=== PATIENT | female | born 1950 | race Caucasian/White ===

== ENCOUNTER 2019-08-02 10:00 | Observation (INO) ==
[2019-10-25] MEDS ORDERED: Dexamethasone IV 4 MG/ML VIAL 1 ml VIAL IV SLOW PU ONE (06:00)
[2019-10-25] MEDS ORDERED: Buffered Lidocaine 1% SYRIN 1 ml INTRADERM ONE ×2 (06:00→06:19)
[2019-10-25] MEDS ORDERED: Famotidine IV 10 MG/ML 2 ml VIAL (20 mg) IV ONE (06:00)
[2019-10-25] MEDS ORDERED: Acetaminophen IV 1 GM/100ML 1,000 MG/100 ML VIAL IVPB ONE (06:00)
[2019-10-25] MEDS ORDERED: Lactated Ringers 1000 ml BAG 1,000 ML IV SCH (06:00)
[2019-10-25] MEDS ORDERED: ceFAZolin 2 GM PREMIX 2 GM/50 ML BAG ONE (06:18)
[2019-10-25] MEDS ORDERED: Dexamethasone IV 4 MG/ML VIAL 1 ml VIAL ONE (06:18)
[2019-10-25] MEDS ORDERED: Acetaminophen IV 1 GM/100ML 100 ML ONE (06:19)
[2019-10-25] MEDS ORDERED: Famotidine IV 10 MG/ML 2 ml VIAL (20 mg) ONE (06:19)
[2019-10-25] MEDS ORDERED: Midazolam 2 mg/2 ml VIAL 1 mg/ml 2 ml VIAL (2 mg) ONE (06:59)
[2019-10-25] MEDS ORDERED: EPHEDrine (Pressors) 50 MG/ML VIAL ONE (07:00)
[2019-10-25] MEDS ORDERED: Phenylephrine 40 mcg/mL 10mL (400mcg) SYRINGE ONE (07:00)
[2019-10-25] MEDS ORDERED: Propofol 10 MG/ML 20 ML BTL ONE ×2 (07:00→10:06)
[2019-10-25] MEDS ORDERED: fentaNYL 100 mcg/2 ml 50 MCG/ML VIAL ONE (07:00)
[2019-10-25] MEDS ORDERED: Lidocaine 2% PF 5 ML VIAL ONE (07:00)
[2019-10-25] MEDS ORDERED: Sodium Chloride 0.9% 10 ML ONE (07:00)
[2019-10-25] MEDS ORDERED: Bupivacaine 0.5% SDV PF 30ML VIAL ONE ×2 (07:01→07:47)
[2019-10-25] MEDS ORDERED: Lidocaine 2% JELLY 6 ML TOPICAL ONE (07:12)
[2019-10-25] MEDS ORDERED: Ondansetron ODT 4 mg TAB 4 MG TAB PO PRN (10:28)
[2019-10-25] MEDS ORDERED: Lactulose 30 ml UDC PO PRN (10:28)
[2019-10-25] MEDS ORDERED: diPHENhydraMINE 25 mg TAB PO PRN (10:28)
[2019-10-25] MEDS ORDERED: Magnesium Hydroxide LIQ 30 ML UDC PO PRN (10:28)
[2019-10-25] MEDS ORDERED: Morphine 2 MG/ML SYRINGE IV PRN (10:28)
[2019-10-25] MEDS ORDERED: Ondansetron 4 mg VIAL 2 MG/ML 2 ml VIAL IV PRN ×2 (10:28→13:18)
[2019-10-25] MEDS ORDERED: diPHENhydraMINE IV 50 MG/ML 1 ml VIAL (BENADRYL) IV PRN (10:28)
[2019-10-25] MEDS: D5W 1/2 NS 1000 ml BAG 1,000 ML IV SCH ×2 (12:31→22:31)
[2019-10-25 12:49] LABS: Hepatitis B Surface Antigen Nonreactive (Nonreactive)
[2019-10-25 13:00] LABS: HIV 4th Generation Nonreactive (Nonreactive)
[2019-10-25 13:07] LABS: Hepatitis C Antibody Negative (Negative)
[2019-10-25] MEDS ORDERED: fentaNYL 100 mcg/2 ml 50 MCG/ML VIAL IV PRN (13:18)
[2019-10-25] MEDS ORDERED: DiMENhydriNATE IV 50 mg/ml 1 ml VIAL IV PUSH PRN (13:18)
[2019-10-25] MEDS ORDERED: HYDROmorphone 1 MG/1 ML SYRINGE IV PRN (13:18)
[2019-10-25] MEDS ORDERED: Naloxone 0.4 mg VIAL 0.4 mg/ml 1 ml VIAL IV PRN (13:18)
[2019-10-25] MEDS: ceFAZolin 1 GM ADVAN 1 GM in NS 0.9% 50 ML 50 ML IVPB SCH (16:21)
[2019-10-25] MEDS: Magnesium Hydroxide LIQ 30 ML UDC PO SCH (21:09)
[2019-10-25] MEDS: Diclofenac 1% GEL (NF) 100 GM TUBE TOPICAL SCH (21:13)
[2019-10-26] MEDS: ceFAZolin 1 GM ADVAN 1 GM in NS 0.9% 50 ML 50 ML IVPB SCH ×2 (00:14→07:54)
[2019-10-26] MEDS: Magnesium Hydroxide LIQ 30 ML UDC PO SCH (08:32)
[2019-10-26] MEDS: Diclofenac 1% GEL (NF) 100 GM TUBE TOPICAL SCH (08:34)
[2019-10-26 08:35] LABS: Hematocrit 33 % (35-47); Hemoglobin 11.3 g/dL (12.0-16.0); Mean Platelet Volume 8.4 fL (7.4-10.4); Platelet Count 282 10^3/uL (150-450)
[2019-10-26 08:50] LABS: BUN/Creatinine Ratio 28.1 (8-20); Calcium 8.7 mg/dL (8.6-10.3); EGFR African American 110.7 (>60); EGFR Non-African American 91.5 (>60); Potassium 4.1 mmol/L (3.5-5.0)
[2019-10-26] MEDS ORDERED: Vitamin THERAPEUTIC TAB PO SCH (09:00)
[2019-10-26 11:51] VITALS: BP 123/62
== END 2019-10-26 14:10 | disposition home or self-care (01) ==
LOC: INTOOBSV 10-25 05:34 → AA 10-25 05:34 → SSU 10-25 12:19
PROVIDERS: ADMIT Orthopaedic Surgery; ATTEND Orthopaedic Surgery

== ENCOUNTER 2022-09-03 05:31 | Inpatient (IN) ==
[~2022-09-03 05:31] MED LIST: Naloxone 0.4 mg VIAL 0.4 mg/ml 1 ml VIAL IV PRN; Prochlorperazine 5 mg/ml 2 ml VIAL (10 mg) IV PRN; fentaNYL 100 mcg/2 ml 50 MCG/ML VIAL IV PRN
[2022-09-03] MEDS ORDERED: Lactated Ringers 1000 ml BAG 1,000 ML IV SCH (06:00)
[2022-09-03] MEDS ORDERED: Buffered Lidocaine 1% SYRIN 1 ml INTRADERM ONE (06:00)
[2022-09-03] MEDS ORDERED: ceFAZolin 2 GM PREMIX 2 GM/50 ML BAG ONE (06:01)
[2022-09-03 06:21] LABS: Rapid COVID-19 Molecular Undetected (Undetected)
[2022-09-03] MEDS ORDERED: fentaNYL 100 mcg/2 ml 50 MCG/ML VIAL ONE (07:00)
[2022-09-03] MEDS ORDERED: Midazolam 2 mg/2 ml VIAL 1 mg/ml 2 ml VIAL (2 mg) ONE (07:00)
[2022-09-03] MEDS ORDERED: Propofol 10 MG/ML 20 ML BTL ONE ×2 (07:00→09:14)
[2022-09-03] MEDS ORDERED: Lidocaine 2% PF 5 ML VIAL ONE (07:00)
[2022-09-03] MEDS ORDERED: BUPIVACAINE **LIPOSOME/PF 13.3 MG/ML (266MG/ 20ML) VIAL (RESTRICTED) INFIL ONE (07:00)
[2022-09-03] MEDS ORDERED: Rocuronium 50 mg VIAL 10 mg/ml 5 ml VIAL (50 mg) ONE (07:00)
[2022-09-03] MEDS ORDERED: Bupivacaine 0.25% SDV 30 ML ONE (07:06)
[2022-09-03] MEDS ORDERED: Bupivacaine 0.25% w/EPI 10 ML SDV ONE (07:06)
[2022-09-03] MEDS ORDERED: Dexamethasone IV 4 MG/ML VIAL 1 ml VIAL ONE (07:56)
[2022-09-03] MEDS ORDERED: Ondansetron 4 mg VIAL 2 MG/ML 2 ml VIAL ONE (07:56)
[2022-09-03] MEDS ORDERED: Acetaminophen IV 1 GM/100ML 1,000 MG/100 ML BAG IV ONE (09:20)
[2022-09-03] MEDS ORDERED: Lactulose 30 ml UDC PO PRN (10:07)
[2022-09-03] MEDS ORDERED: Magnesium Hydroxide LIQ 30 ML UDC PO PRN (10:07)
[2022-09-03] MEDS ORDERED: Ondansetron ODT 4 mg TAB 4 MG TAB PO PRN (10:07)
[2022-09-03] MEDS ORDERED: Morphine 2 MG/ML SYRINGE IV PRN (10:07)
[2022-09-03] MEDS ORDERED: Ondansetron 4 mg VIAL 2 MG/ML 2 ml VIAL IV PRN (10:07)
[2022-09-03] MEDS: Lactated Ringers 1000 ml BAG 1,000 ML IV SCH ×2 (12:05→23:35)
[2022-09-03] MEDS: ceFAZolin 1 GM ADVAN 1 GM in NS 0.9% 50 ML 50 ML IVPB SCH ×2 (16:06→23:35)
[2022-09-03] MEDS: Magnesium Hydroxide LIQ 30 ML UDC PO SCH (20:27)
[2022-09-04 07:27] LABS: Hematocrit 34.4 % (35-45); Hemoglobin 11.8 g/dL (11.5-14.3); Mean Platelet Volume 8.3 fL (7.5-11.2); Platelet Count 303 10^3/uL (150-450)
[2022-09-04 08:05] LABS: Calcium 9.4 mg/dL (8.6-10.3); Creatinine, Serum 0.59 mg/dL (0.51-0.95); Potassium 4.4 mmol/L (3.5-5.0); eGFR CKD-EPI 94.5 (>60)
[2022-09-04] MEDS: Magnesium Hydroxide LIQ 30 ML UDC PO SCH ×2 (08:30→20:52)
[2022-09-04] MEDS: ceFAZolin 1 GM ADVAN 1 GM in NS 0.9% 50 ML 50 ML IVPB SCH (08:30)
[2022-09-04] MEDS: Vitamin THERAPEUTIC TAB PO SCH (08:30)
[2022-09-04] MEDS: Morphine ER 15 mg TAB ** extended release PO SCH ×2 (09:54→20:50)
[2022-09-05 06:10] LABS: Hematocrit 33.8 % (35-45); Hemoglobin 11.4 g/dL (11.5-14.3); Mean Platelet Volume 8.6 fL (7.5-11.2); Platelet Count 276 10^3/uL (150-450)
[2022-09-05] MEDS: Vitamin THERAPEUTIC TAB PO SCH (07:55)
[2022-09-05] MEDS: Magnesium Hydroxide LIQ 30 ML UDC PO SCH ×2 (07:56→21:11)
[2022-09-05] MEDS ORDERED: Acetaminophen IV 1 GM/100ML 1,000 MG/100 ML BAG IV PRN (10:15)
[2022-09-05] MEDS: Morphine ER 15 mg TAB ** extended release PO SCH (10:18)
[2022-09-05] MEDS ORDERED: Calcium Carb (TUMS) 500 mg CHEW TAB PO ONE (20:03)
[2022-09-06 06:54] LABS: Hematocrit 32.3 % (35-45); Hemoglobin 10.9 g/dL (11.5-14.3); Mean Platelet Volume 8.6 fL (7.5-11.2); Platelet Count 272 10^3/uL (150-450)
[2022-09-06] MEDS: Vitamin THERAPEUTIC TAB PO SCH (08:34)
[2022-09-06 13:59] VITALS: BP 127/70
== END 2022-09-06 15:50 | disposition home or self-care (01) | DRG 470 ==
LOC: SSU 05:31 → OR 05:31
PROVIDERS: ADMIT Orthopaedic Surgery Sports Medicine; ATTEND Orthopaedic Surgery Sports Medicine